=== PATIENT | male | born 1970 | race African-American/Black ===

== ENCOUNTER 2017-06-23 16:44 | Emergency (ER) | payer MEDICARE, OTHER ==
[~2017-06-23] VITALS: Ht 188 cm; Wt 83.9 kg
[~2017-06-23 16:44] MED LIST: DEPAKOTE500 MG PO
--- NOTE | 2017-06-23 16:52 | Emergency Room Report ---
History of Present Illness General Chief Complaint: Seizure Source: Patient Present Illness HPI Patient presents with complaints of seizure activity patient was found on the street by bystanders Paramedics summoned Patient was mildly postictal upon arrival Denies any headache denies any chest pain or shortness of breath Last seizure activity was about 6 months ago Does not recall any change in medication recently patient reports taking Dilantin Denies any recent fevers denies any neck pain or photophobia Allergies: Coded Allergies: No Known Allergies (Unverified , 07/28/13) Patient History Past Medical History: see triage record Pertinent Family History: none Reviewed Nursing Documentation: PMH: Agreed; PSxH: Agreed Nursing Documentation-PMH Past Medical History: No History, Except For Hx Seizures: Yes Review of Systems All Other Systems: negative except mentioned in HPI Physical Exam Vital Signs Date Time Temp Pulse Resp B/P (MAP) Pulse Ox O2 Delivery O2 Flow Rate FiO2 06/23/17 16:46 18 Sp02 EP Interpretation: reviewed, normal General Appearance: well appearing, no apparent distress Head: normocephalic, atraumatic Eyes: bilateral eye PERRL, bilateral eye EOMI ENT: hearing grossly normal, normal pharynx, TMs + canals normal, uvula midline Neck: full range of motion, supple, no meningismus, no bony tend Respiratory: lungs clear, normal breath sounds, no rhonchi, no respiratory distress, no retraction, no accessory muscle use Cardiovascular #1: normal peripheral pulses, regular rate, rhythm, no edema, no gallop, no JVD, no murmur Gastrointestinal: normal bowel sounds, non tender, soft, no mass, no organomegaly, non-distended, no guarding, no hernia, no pulsatile mass, no rebound Genitourinary: no CVA tenderness Musculoskeletal: normal inspection Neurologic: oriented x3, responsive, account auditor III-XII nml as tested, motor strength/ tone normal, sensory intact Psychiatric: mood/affect normal Skin: normal color, no rash, warm/dry, palpation normal Lymphatic: normal inspection, no adenopathy Medical Decision Making Diagnostic Impression: Primary Impression: Seizure disorder Additional Impression: Subtherapeutic phenytoin level ER Course There was a question regarding of the patient takes Dilantin or Depakote He feels a fairly strongly that he takes Dilantin Patient's Dilantin level was undetectable here Was given oral medication Remains seizure-free and requires improved outpatient follow-up and care Labs Test 06/23/17 17:00 White Blood Count 5.9 K/UL (4.8-10.8) Red Blood Count 4.39 M/UL (4.70-6.10) Hemoglobin 13.4 G/DL (14.2-18.0) Hematocrit 41.2 % (42.0-52.0) Mean Corpuscular Volume 94 FL (80-99) Mean Corpuscular Hemoglobin 30.4 PG (27.0-31.0) Mean Corpuscular Hemoglobin Concent 32.4 G/DL (32.0-36.0) Red Cell Distribution Width 13.7 % (11.6-14.8) Platelet Count 200 K/UL (150-450) Mean Platelet Volume 7.5 FL (6.5-10.1) Neutrophils (%) (Auto) 58.3 % (45.0-75.0) Lymphocytes (%) (Auto) 35.6 % (20.0-45.0) Monocytes (%) (Auto) 3.3 % (1.0-10.0) Eosinophils (%) (Auto) 1.2 % (0.0-3.0) Basophils (%) (Auto) 1.5 % (0.0-2.0) Sodium Level 142 MMOL/L (136-145) Potassium Level 3.9 MMOL/L (3.5-5.1) Chloride Level 104 MMOL/L (98-107) Carbon Dioxide Level 26 MMOL/L (21-32) Anion Gap 12 mmol/L (5-15) Blood Urea Nitrogen 5 mg/dL (7-18) Creatinine 0.9 MG/DL (0.55-1.30) Estimat Glomerular Filtration Rate > 60 mL/min (>60) Glucose Level 123 MG/DL (74-106) Calcium Level 9.5 MG/DL (8.5-10.1) Phenytoin (Dilantin) Level < 0.4 ug/mL (10-20) Last Vital Signs Date Time Temp Pulse Resp B/P (MAP) Pulse Ox O2 Delivery O2 Flow Rate FiO2 06/23/17 16:46 18 Status: improved Disposition: HOME, SELF-CARE Condition: Improved Additional Instructions: Patient is provided with the discharge instructions notified to follow up with primary doctor in the next 2-3 days otherwise return to the er with any worsening symptoms.Patient reports that he is taking the bus and he does not drive. He is aware that was seizure activity is not allowed to drive Please note that this report is being documented using [employer] technology. This can lead to erroneous entry secondary to incorrect interpretation by the dictating instrument. Som Ash DO June 23, 2017 16:52
[2017-06-23] MEDS ORDERED: LORazepam 1mg tab ORAL ONE (17:00)
[2017-06-23 17:20] VITALS: BP 118/76
[2017-06-23 17:43] LABS: BASOPHILS % (AUTO) 1.5 % (0.0-2.0); EOSINOPHILS % (AUTO) 1.2 % (0.0-3.0); HEMATOCRIT 41.2 % (42.0-52.0); HEMOGLOBIN 13.4 G/DL (14.2-18.0); LYMPHOCYTES % (AUTO) 35.6 % (20.0-45.0); MEAN CORPUSCULAR VOLUME 94 FL (80-99); MONOCYTES % (AUTO) 3.3 % (1.0-10.0); NEUTROPHILS % (AUTO) 58.3 % (45.0-75.0); PLATELET COUNT 200 K/UL (150-450); RED BLOOD COUNT 4.39 M/UL (4.70-6.10); RED CELL DISTRIBUTION WIDTH 13.7 % (11.6-14.8); WHITE BLOOD COUNT 5.9 K/UL (4.8-10.8)
[2017-06-23 17:56] LABS: ANION GAP 12 mmol/L (5-15); BLOOD UREA NITROGEN 5 mg/dL (7-18); CALCIUM 9.5 MG/DL (8.5-10.1); CARBON DIOXIDE 26 MMOL/L (21-32); CHLORIDE 104 MMOL/L (98-107); CREATININE 0.9 MG/DL (0.55-1.30); POTASSIUM 3.9 MMOL/L (3.5-5.1); SODIUM 142 MMOL/L (136-145)
[2017-06-23 18:00] VITALS: BP 134/87
[2017-06-23] MEDS ORDERED: Phenytoin 100mg cap ORAL ONE (18:15)
== END 2017-06-23 18:00 | disposition home or self-care (01) ==
LOC: EDBD 16:44 → EMR 17:15
DX: G40.909 Epilepsy, unspecified, not intractable, without status epilepticus (principal); Z79.899 Other long term (current) drug therapy
CPT/HCPCS: 36415; 80048; 80185; 85025; 99283

== ENCOUNTER 2017-11-08 17:02 | Emergency (ER) | payer MEDICARE, OTHER ==
[~2017-11-08] VITALS: Ht 188 cm; Wt 86.2 kg
[2017-11-08 17:33] VITALS: BP 132/78
--- NOTE | 2017-11-08 17:56 | Emergency Room Report ---
History of Present Illness General Chief Complaint: General Complaint Present Illness HPI 47-year-old male patient presents ER complaining of "I have hemorrhoids". Reports history of hemorrhoids for over the past 10 years. States that he had surgery to remove a hemorrhoid over 10 years ago, take after the surgery that the "stitches ripped" has had problems since that time. States he has not followed up with his primary care provider since then because "every time he goes to the doctor there is a long line" and he "does not want to wait". Reports intermittent blood in stool with symptoms. Denies diarrhea or constipation. Denies fever, chest pain, shortness of breath, abdominal pain. Allergies: Coded Allergies: No Known Allergies (Unverified , 07/28/13) Patient History Past Medical History: see triage record Reviewed Nursing Documentation: PMH: Agreed; PSxH: Agreed Nursing Documentation-PMH Hx Seizures: Yes - epilepsy Review of Systems All Other Systems: negative except mentioned in HPI Physical Exam Vital Signs Date Time Temp Pulse Resp B/P (MAP) Pulse Ox O2 Delivery O2 Flow Rate FiO2 11/08/17 17:17 98.3 89 18 97 Room Air 98.2 11/08/17 17:33 132/78 Sp02 EP Interpretation: reviewed, normal General Appearance: well appearing, no apparent distress, alert, GCS 15, non- toxic Head: normocephalic, atraumatic Eyes: bilateral eye normal inspection, bilateral eye PERRL ENT: hearing grossly normal, normal pharynx, no angioedema, normal voice, uvula midline, moist mucus membranes Neck: full range of motion Respiratory: lungs clear, normal breath sounds, no rhonchi, no respiratory distress, no accessory muscle use, no wheezing, speaking full sentences Cardiovascular #1: regular rate, rhythm, no edema Gastrointestinal: non tender, soft, no mass, non-distended, no guarding, no rebound Rectal: normal rectal tone, hemorrhoids - mild TTP, no bleeding, other - pink palpable fleshy and mucous-like structure, no concentric rings, no anal fissure , no skin tag Genitourinary: no CVA tenderness Musculoskeletal: back normal, digits/nails normal, gait/station normal, normal range of motion, non-tender Neurologic: alert, oriented x3, responsive, motor strength/tone normal, sensory intact Psychiatric: mood/affect normal Skin: no rash Lymphatic: no adenopathy Medical Decision Making PA Attestation Dr. Moore is my supervising Physician whom patient management has been discussed with. Diagnostic Impression: Primary Impression: Hemorrhoid ER Course Pt. presents to the ED c/o "I have hemorrhoids". Ddx considered but are not limited to constipation, anal tag, anal fissure, hemorrhoids, rectal prolapse. Vital signs: are WNL, pt. is afebrile No orders required at this time. No signs of anemia, no pallor, patient reports no light headedness. ER COURSE: on physical exam, possible chronically exposed vs ruptured hemorrhoid vs rectum exposure, no reducible prolapse, normal rectal tone. discuss patient with possible causes of symptoms including possible malignancy, advised patient to follow-up for outpatient for outpatient workup. no palpable veins, no anal fissure, no skin tag no abdominal tenderness to palpation, able to pass stool, dose not require labs or imaging at this time. patient and contact information for GI specialist and general surgeon, call to schedule appointment. Will treat for hemorrhoids with topical medication. Provide Colace for constipation. Instructed patient to drink plenty of fluids. Patient seen and evaluated by Dr. Moore, agrees with assessment and treatment plan, OK for outpatient followup and treatment. DISCHARGE: Rx provided for lidocaine hydrocortisone cream, apply to affected area. Rx provided for Colace At this time pt is stable for d/c to home. Patient is resting comfortably, in no acute distress, nontoxic appearing, talking without difficulty. Patient to take medications as instructed Will provide with patient care instructions and any necessary prescriptions. Care plan and follow-up instructions provided. Patient instructed to follow-up with primary care provider in 3 - 5 days. Patient questions asked and answered. Patient reports understanding and agreement to treatment plan. ER precautions given. Patient instructed to return to ER immediately for any new or worsening of symptoms including but not limited to increasing SOB, persistent fever. - Please note that this Emergency Department Report was dictated using [employer]ann[employer]attendant campground technology software, occasionally this can lead to erroneous entry secondary to interpretation by the dictation equipment. Last Vital Signs Date Time Temp Pulse Resp B/P (MAP) Pulse Ox O2 Delivery O2 Flow Rate FiO2 11/08/17 17:33 98.2 72 18 132/78 97 Room Air 98.2 Disposition: HOME, SELF-CARE Condition: Stable Scripts Docusate Sodium* (COLACE*) 100 Mg Capsule 100 MG ORAL THREE TIMES A DAY, #21 CAP Prov: José Luis Ordaz 11/08/17 Hydrocortisone Ac/Lidocaine (LIDOCAINE-HC 3-0.5% CREAM) 28.35 Gm Cream..g. 28.35 GM TP BID, #28 GM Prov: José uLis Ordaz 11/08/17 Referrals: NOT CHOSEN IPA/MD,REFERRING (PCP) Patient Instructions: Hemorrhoids, [id number] Additional Instructions: Followup with primary care provider in 2-3 days. Followup with GI specialist and surgeon to discuss further imaging and workup at that time to rule out underlying etiology. Take medications as directed. Patient questions asked and answered. ER precautions given, patient instructed to return to ER immediately for any new or worsening of symptoms. José Luis Ordaz Nov 08, 2017 17:56
[2017-11-08] MEDS ORDERED: COLACE100 MG ORAL (18:22)
[2017-11-08] MEDS ORDERED: LIDOCAINE-HC28.35 GM TP (18:22)
[2017-11-08 18:33] VITALS: BP 132/78
== END 2017-11-08 18:33 | disposition home or self-care (01) ==
LOC: EMR 17:41
DX: K64.9 Unspecified hemorrhoids (principal); G40.909 Epilepsy, unspecified, not intractable, without status epilepticus
CPT/HCPCS: 99283

== ENCOUNTER 2017-11-18 16:32 | Emergency (ER) | payer MEDICARE, OTHER ==
[~2017-11-18] VITALS: Ht 188 cm; Wt 86.2 kg
[~2017-11-18 16:32] MED LIST changes: +COLACE100 MG ORAL; +LIDOCAINE-HC28.35 GM TP
[2017-11-18] MEDS ORDERED: Bacitracin Oint UD TOPIC ONE ×2 (17:00→18:29)
[2017-11-18] MEDS ORDERED: Lidocaine 1% MPF 10mg/ml 5ml INJ ONE (17:00)
[2017-11-18 17:02] VITALS: BP 112/79
--- NOTE | 2017-11-18 17:19 | Emergency Room Report ---
History of Present Illness General Chief Complaint: Laceration Source: Patient Present Illness HPI 47-year-old male patient presents ER complaining of laceration on the bottom of his chin. States that he woke up this morning with a laceration. Denies injury or trauma that he is aware of. States that he went to sleep without any laceration. Reports history of seizures, states that he is taking Dilantin. Reports has been taking his medication as instructed, states that he takes 2000 mg daily. Denies fever, chest pain or shortness of breath. reports smoking marijuana prior to falling asleep. Allergies: Coded Allergies: No Known Allergies (Unverified , 07/28/13) Patient History Past Medical History: see triage record Reviewed Nursing Documentation: PMH: Agreed; PSxH: Agreed Nursing Documentation-PMH Past Medical History: No History, Except For Hx Seizures: Yes - epilepsy Review of Systems All Other Systems: negative except mentioned in HPI Physical Exam Vital Signs Date Time Temp Pulse Resp B/P (MAP) Pulse Ox O2 Delivery O2 Flow Rate FiO2 11/18/17 16:36 98.2 105 18 112/79 95 Room Air 98.2 Sp02 EP Interpretation: reviewed, normal General Appearance: well appearing, no apparent distress, alert, GCS 15, non- toxic Head: normocephalic, atraumatic Eyes: bilateral eye normal inspection, bilateral eye PERRL ENT: hearing grossly normal, normal pharynx, no angioedema, normal voice, uvula midline, moist mucus membranes, other - no jaw clicking Neck: full range of motion Respiratory: lungs clear, normal breath sounds, no rhonchi, no respiratory distress, no accessory muscle use, no wheezing, speaking full sentences Cardiovascular #1: regular rate, rhythm, no edema Musculoskeletal: back normal, digits/nails normal, gait/station normal, normal range of motion, non-tender Neurologic: alert, oriented x3, responsive, soil conservation aide III-XII nml as tested, motor strength/tone normal, sensory intact Psychiatric: mood/affect normal Skin: laceration - deep 3-4 cm linear laceration on chin, surrounding erythema or edema, no active bleeding or drainage Medical Decision Making PA Attestation Dr. Winslow is my supervising Physician whom patient management has been discussed with. Diagnostic Impression: Primary Impression: Laceration Additional Impression: Subtherapeutic phenytoin level ER Course Pt presents to ED c/o laceration on chin. DDX considered but are not limited to laceration, abrasion, contusion, cellulitis. VITAL SIGNS are WNL, patient is afebrile ED INTERVENTIONS: Cranial nerves intact as tested, no focal neuro deficits, hx of seizure disorder , patient ambulatory, does not require labs or imaging at this time. Wound was cleaned and irrigated using normal saline. Local block using Lidocaine 1%. Consult with DR. Prasad, will repair laceration. Provided with contact information for Dr. Prasad, call to schedule appointment , wound check and suture removal in 5-7 days. Wound cleaned and covered using sterile dressing and Bacitracin. Patient reports understanding and agreement to treatment plan. Keep wound clean and dry. ER precautions given. Labs show decreased levels of phenytoin, discuss results with patient. on repeat exam, patient reports that he missed a dose of his medication yesterday. patient likely had seizure causing trauma to his chin. Instructed patient to take medication as directed, follow-up with his PCP to discuss labs and medication use. Patient resting comfortably in no acute distress, nontoxic appearing, okay for discharge home. DISCHARGE: Rx provided for Keflex Rx provided for Bacitracin Rx provided for Tylenol At this time pt is stable for d/c to home. Patient resting comfortably, in no acute distress, nontoxic appearing, talking without difficulty. Will provide with patient care instructions and any necessary prescriptions. Patient to take medication as instructed. Care plan and follow-up instructions provided. Work note provided to patient. Patient questions asked and answered. Patient instructed to follow-up with 5-7 days for removal of sutures with Dr. Prasad. ER precautions given. Patient instructed to return to ER immediately for any new or worsening of symptoms.. - Please note that this Emergency Department Report was dictated using R[employer] Informatiquethermostat mechanic technology software, occasionally this can lead to erroneous entry secondary to interpretation by the dictation equipment. Labs Test 11/18/17 18:00 Phenytoin (Dilantin) Level 0.5 ug/mL (10-20) Last Vital Signs Date Time Temp Pulse Resp B/P (MAP) Pulse Ox O2 Delivery O2 Flow Rate FiO2 11/18/17 17:02 98.2 100 18 112/79 95 Room Air 98.2 Disposition: HOME, SELF-CARE Condition: Stable Scripts Acetaminophen* (TYLENOL EXTRA STRENGTH*) 500 Mg Tablet 500 MG ORAL Q8H PRN for Prn Headache/Temp > 101, #30 TAB 0 Refills Prov: José Luis Ordaz 11/18/17 Cephalexin* (KEFLEX*) 500 Mg Capsule 500 MG ORAL EVERY 12 HOURS, #14 CAP 0 Refills Prov: José Luis Ordaz 11/18/17 Bacitracin/Polymyxin B Sulfate (BACITRACIN-POLYMYXIN OINTMENT) 28.35 Gm Oint...g. 1 APPLIC TP BID, #28 GM Prov: José Luis Ordaz 11/18/17 Referrals: NOT CHOSEN IPA/,REFERRING (PCP) Patient Instructions: Laceration Care, Adult, Seizure, Adult, [id number] Additional Instructions: Patient instructed to follow-up with Dr. Prasad in 5-7 days for wound check and removal of sutures. Call to schedule appointment. Take medications as directed. Keep wound clean and dry. Patient questions asked and answered. ER precautions given, patient instructed to return to ER immediately for any new or worsening of symptoms. José Luis Ordaz Nov 18, 2017 17:19
--- NOTE | 2017-11-18 18:01 | Pre-Procedure Note/Attestation ---
Pre-Procedure Note/Attestation Complete Prior to Procedure Planned Procedure: bilateral Procedure Narrative: chin laceration down to mandible no fracture palpable Indications for Procedure Pre-Operative Diagnosis: two inch deep laceration of just under chin Attestation I attest that I discussed the nature of the procedure; its benefits; risks and complications; and alternatives (and the risks and benefits of such alternatives ), prior to the procedure, with the patient (or the patient's legal hardware supplies sales representative). I attest that, if there was a reasonable possibility of needing a blood transfusion, the patient (or the patient's legal hardware supplies sales representative) was given the [facility] standardized written summary, pursuant to the Mark Evaristo Blood Safety Act ([place] Health and Safety Code # 1645, as amended). I attest that I re-evaluated the patient just prior to the surgery and that there has been no change in the patient's H&P, except as documented below: Tony Schilling MD Nov 18, 2017 18:01
[2017-11-18] MEDS ORDERED: BACITRACIN-P28.35 GM TP (18:07)
[2017-11-18] MEDS ORDERED: TYLENOL EXTRA500 MG ORAL (18:07)
[2017-11-18] MEDS ORDERED: CEPHALEXIN500 MG ORAL (18:07)
[2017-11-18 18:49] VITALS: BP 112/79
--- NOTE | 2017-11-19 18:45 | Operative Note - Dictated ---
DATE OF OPERATION: 11/18/2017 PROCEDURE: The patient entered through the emergency room with a 2 to 2.5 inch laceration under the chin of undetermined origin, does not remember what happened. The laceration is deep down to the mandible. The patient desired to have the wound sutured up, understood the risks, complications, and alternative methods of treatment. He was prepped with Betadine and then irrigated with multiple mL of saline under high pulsatile irrigation, very minimal debridement was done as this is very important tissue. The deep suture is placed were 4-0 Vicryl interrupted in the subcutaneous tissue and dermis and then a continuous running 4-0 blue Prolene numerous continuous running stitches from [id number]. The patient tolerated the procedure well, less than 3 mL of blood noted. The patient was able to look in the mirror and able to go back to work. Tony Schilling M.D. DR: Manuel JOB#: [id number] CC:
== END 2017-11-18 18:50 | disposition home or self-care (01) ==
LOC: EMR 17:05
DX: S01.81XA Laceration without foreign body of other part of head, initial encounter (principal); X58.XXXA Exposure to other specified factors, initial encounter; Y92.9 Unspecified place or not applicable; G40.909 Epilepsy, unspecified, not intractable, without status epilepticus; Z79.899 Other long term (current) drug therapy
CPT/HCPCS: 36415; 80185; 99283

== ENCOUNTER 2017-11-25 18:23 | Emergency (ER) | payer MEDICARE, OTHER ==
[~2017-11-25] VITALS: Ht 188 cm; Wt 86.2 kg
[~2017-11-25 18:23] MED LIST changes: +BACITRACIN-P28.35 GM TP; +CEPHALEXIN500 MG ORAL; +TYLENOL EXTRA500 MG ORAL
[2017-11-25 18:27] VITALS: BP 109/73
[2017-11-25 19:01] VITALS: BP 109/73
--- NOTE | 2017-11-25 19:09 | Emergency Room Report ---
History of Present Illness General Chief Complaint: Wound Recheck/Suture Removal Source: Patient Present Illness [facility] The patient is a 47-year-old male presenting for suture removal and wound check. The patient had sutures placed in this emergency department approximately one week prior. The original injury was that the patient had a seizure and fell and struck his chin. He denies any complications. He denies any pain at this time. He denies any bleeding or discharge, fever, chills, or any other symptoms Allergies: Coded Allergies: No Known Allergies (Unverified , 07/28/13) Patient History Past Medical History: see triage record Pertinent Family History: none Reviewed Nursing Documentation: PMH: Agreed; PSxH: Agreed Nursing Documentation-PMH Past Medical History: No History, Except For Hx Seizures: Yes - epilepsy Review of Systems All Other Systems: negative except mentioned in HPI Physical Exam Vital Signs Date Time Temp Pulse Resp B/P (MAP) Pulse Ox O2 Delivery O2 Flow Rate FiO2 11/25/17 18:27 16 109/73 95 Room Air 11/25/17 18:27 98.6 93 98.6 Sp02 EP Interpretation: reviewed, normal General Appearance: no apparent distress, alert, GCS 15, non-toxic Head: normocephalic, atraumatic Eyes: bilateral eye normal inspection, bilateral eye PERRL ENT: hearing grossly normal, normal pharynx, no angioedema, normal voice Musculoskeletal: back normal, gait/station normal, normal range of motion, non- tender Neurologic: alert, oriented x3, responsive, motor strength/tone normal, sensory intact, speech normal Skin: other - Linear laceration to the chin is well approximated. Sutures are in place Medical Decision Making PA Attestation Dr. Winslow is my supervising physician. Patient management was discussed with my supervising physician Diagnostic Impression: Primary Impression: Visit for suture removal Additional Impression: Suture check ER Course The patient is a 47-year-old male presenting for suture removal from his chin Differential diagnosis considered: Wound infection, nonhealing wound, cellulitis , abscess, dehiscence PE: afebrile. NAD Skin: Linear laceration to chin is well approximated with sutures in place. Well healing. No surrounding erythema. No discharge Suture removal: All sutures were removed without complication. No bleeding or discharge. Wound is well approximated. The patient is discharged home and advised to continue to keep the wound clean and dry. Follow-up with primary doctor Last Vital Signs Date Time Temp Pulse Resp B/P (MAP) Pulse Ox O2 Delivery O2 Flow Rate FiO2 11/25/17 19:01 98.6 16 109/73 95 Room Air 98.6 11/25/17 18:27 93 Status: improved Disposition: HOME, SELF-CARE Condition: Improved Patient Instructions: Suture Removal, Care After Additional Instructions: I discussed my findings with the patient. All questions and concerns have been answered. Treatment and medication compliance have been addressed. I advised the patient that they need to follow up with PMD in 3-5 days. Return to ED if symptoms worsen, new symptoms arise, or if needed for any reason. Patient verbalized understanding of discharge instructions. SRIKANTH SPENCE Nov 25, 2017 19:09
== END 2017-11-25 19:01 | disposition home or self-care (01) ==
LOC: EMR 18:44
DX: Z48.02 Encounter for removal of sutures (principal); Z48.817 Encounter for surgical aftercare following surgery on the skin and subcutaneous tissue
CPT/HCPCS: 99282

== ENCOUNTER → 2017-11-28 | Emergency (ER) | payer MEDICARE, OTHER ==
[~2017-11-28] VITALS: Ht 188 cm; Wt 86.2 kg
[~2017-11-28] MED LIST changes: +DILANTIN100 MG ORAL
[2017-11-28 15:35] VITALS: BP 105/72
--- NOTE | 2017-11-28 18:45 | Emergency Room Report ---
History of Present Illness General Chief Complaint: Wound Recheck/Suture Removal Source: Patient Present Illness HPI 47-year-old male patient presents to ER for suture removal. patient interrupts me during interviewing another patient. Patient was seen in the ER over a week ago for laceration repair on his chin. Patient was seen 3 days ago for suture removal. denies worsening of symptoms. Denies bleeding or drainage. Reports lost his phone was unable to follow-up with plastic surgeon as an outpatient. patient states that he has work and does not want ambulate. Allergies: Coded Allergies: No Known Allergies (Unverified , 07/28/13) Patient History Past Medical History: see triage record Reviewed Nursing Documentation: PMH: Agreed; PSxH: Agreed Nursing Documentation-PMH Past Medical History: No History, Except For Hx Seizures: Yes - epilepsy Review of Systems All Other Systems: negative except mentioned in HPI Physical Exam Vital Signs Date Time Temp Pulse Resp B/P (MAP) Pulse Ox O2 Delivery O2 Flow Rate FiO2 11/28/17 15:35 99.0 92 18 105/72 97 Room Air 99.0 Medical Decision Making PA Attestation Dr. Strong is my supervising Physician whom patient management has been discussed with. Diagnostic Impression: Primary Impression: Encounter for wound re-check ER Course Pt. presents to the ED requesting wound check of chin laceration and suture removal. Ddx considered but are not limited to cellulitis, abscess, wound check, folliculitis. Vital signs: are WNL, pt. is afebrile ER COURSE: Patient came and spoke to me while in another patient interview stating that he needs to be seen immediately or he is going to be late to work. Informed patient that he would be seen shortly. Patient states he needs suture removal from his chin. Informed patient would be with him shortly, reviewed patient charts, patient seen 3 days ago for suture removal. I went to go and speak with the patient but he could not be found, he had eloped. DISCHARGE: At this time pt. is stable for d/c to home. Patient resting comfortably, in no acute distress, nontoxic appearing. Will provide printed patient care instructions and any necessary prescriptions. Care plan and follow up instructions have been discussed with the patient prior to discharge. Patient instructed to follow-up with primary care provider for further treatment and referral. Patient questions asked and answered. ER precautions given. Patient instructed to return to ER immediately for any new or worsening of symptoms including but not limited to fever, worsening of pain symptoms. - Please note that this Emergency Department Report was dictated using SantoSolvepallet stone inserter technology software, occasionally this can lead to erroneous entry secondary to interpretation by the dictation equipment. Last Vital Signs Date Time Temp Pulse Resp B/P (MAP) Pulse Ox O2 Delivery O2 Flow Rate FiO2 11/28/17 15:35 99.0 92 18 105/72 97 Room Air 99.0 Disposition: ELOPED Condition: Stable Referrals: NOT CHOSEN IPA/,REFERRING (PCP) Patient Instructions: Wound Check José Luis Ordaz Nov 28, 2017 18:45
== END | disposition home or self-care (01) ==
LOC: EMR 15:48
DX: Z48.00 Encounter for change or removal of nonsurgical wound dressing (principal)
CPT/HCPCS: 99281

== ENCOUNTER 2017-11-29 20:27 | Emergency (ER) | payer MEDICARE, OTHER ==
[~2017-11-29] VITALS: Ht 188 cm; Wt 86.2 kg
[~2017-11-29 20:27] MED LIST changes: -DILANTIN100 MG ORAL
[2017-11-29] MEDS ORDERED: DILANTIN100 MG ORAL (20:33)
[2017-11-29 20:35] VITALS: BP 124/81
[2017-11-29 22:15] VITALS: BP 125/83
[2017-11-29 22:36] LABS: BASOPHILS % (AUTO) 1.6 % (0.0-2.0); EOSINOPHILS % (AUTO) 0.8 % (0.0-3.0); HEMOGLOBIN 14.1 G/DL (14.2-18.0); MEAN CORPUSCULAR VOLUME 95 FL (80-99); MONOCYTES % (AUTO) 7.1 % (1.0-10.0); NEUTROPHILS % (AUTO) 60.4 % (45.0-75.0); PLATELET COUNT 213 K/UL (150-450); RED BLOOD COUNT 4.42 M/UL (4.70-6.10); RED CELL DISTRIBUTION WIDTH 13.8 % (11.6-14.8); WHITE BLOOD COUNT 5.4 K/UL (4.8-10.8)
[2017-11-29 22:46] LABS: ANION GAP 8 mmol/L (5-15); BLOOD UREA NITROGEN 7 mg/dL (7-18); CALCIUM 9.2 MG/DL (8.5-10.1); CARBON DIOXIDE 28 MMOL/L (21-32); CHLORIDE 104 MMOL/L (98-107); CREATININE 0.9 MG/DL (0.55-1.30); POTASSIUM 4.1 MMOL/L (3.5-5.1); SODIUM 140 MMOL/L (136-145)
[2017-11-29 22:51] LABS: ALANINE AMINOTRANSFERASE 28 U/L (12-78); ALBUMIN 3.7 G/DL (3.4-5.0); ALKALINE PHOSPHATASE 55 U/L (46-116); ASPARTATE AMINO TRANSFERASE 27 U/L (15-37); BILIRUBIN,TOTAL 0.2 MG/DL (0.2-1.0)
--- NOTE | 2017-11-29 23:18 | Emergency Room Report ---
History of Present Illness General Chief Complaint: Altered Level of Consciousness Source: Patient Present Illness HPI The patient 47-year-old male who presented after reported seizure. Patient prior history of seizure disorder. He had reportedly been taking Dilantin. The patient had the been noted to be incontinent of urine. He was initially noted to be somewhat postictal. Seizure was unwitnessed. The patient had previously been taking Depakote and is unsure of what his medications are. Patient states he takes medication regularly. Allergies: Coded Allergies: No Known Allergies (Unverified , 07/28/13) Patient History Past Medical History: see triage record, seizures Reviewed Nursing Documentation: PMH: Agreed; PSxH: Agreed Nursing Documentation-PMH Past Medical History: No History, Except For Hx Seizures: Yes - epilepsy Review of Systems All Other Systems: negative except mentioned in HPI Physical Exam Vital Signs Date Time Temp Pulse Resp B/P (MAP) Pulse Ox O2 Delivery O2 Flow Rate FiO2 11/29/17 20:29 97.4 90 20 140/92 98 Room Air 97.3 Sp02 EP Interpretation: reviewed, normal General Appearance: normal inspection, well appearing, no apparent distress, alert, GCS 15 Head: atraumatic ENT: normal ENT inspection, hearing grossly normal, normal voice Neck: normal inspection, full range of motion, supple, no bony tend Respiratory: normal inspection, lungs clear, normal breath sounds, no respiratory distress, no retraction, no wheezing Cardiovascular #1: regular rate, rhythm, no edema Gastrointestinal: normal inspection, normal bowel sounds, non tender, soft, no guarding, no hernia Genitourinary: no CVA tenderness Musculoskeletal: normal inspection, back normal, normal range of motion Neurologic: normal inspection, alert, oriented x3, responsive, insurance verification rep III-XII nml as tested, speech normal Psychiatric: normal inspection, judgement/insight normal, mood/affect normal Skin: normal inspection, normal color, no rash Medical Decision Making Diagnostic Impression: Primary Impression: Seizure disorder ER Course patient presented for possible seizure. Differential diagnosis included medication noncompliance,cysticercosis, electrolyte abnormality, mass lesion, or cranial hemorrhage.Because of complexity of patient's case laboratory testing and imaging studies were ordered.Laboratory studies were drawn. The patient stated that he had no wanted to remain in the hospital. The patient was advised risk benefits alternatives of leaving AGAINST MEDICAL ADVICE and he indicated understanding and all questions are answered patient still continued want to leave and signed AGAINST MEDICAL ADVICE. Despite risks including but not limited to disability and worsening of current lifestyle. Labs Test 11/29/17 22:00 White Blood Count 5.4 K/UL (4.8-10.8) Red Blood Count 4.42 M/UL (4.70-6.10) Hemoglobin 14.1 G/DL (14.2-18.0) Hematocrit 42.0 % (42.0-52.0) Mean Corpuscular Volume 95 FL (80-99) Mean Corpuscular Hemoglobin 32.0 PG (27.0-31.0) Mean Corpuscular Hemoglobin Concent 33.6 G/DL (32.0-36.0) Red Cell Distribution Width 13.8 % (11.6-14.8) Platelet Count 213 K/UL (150-450) Mean Platelet Volume 7.4 FL (6.5-10.1) Neutrophils (%) (Auto) 60.4 % (45.0-75.0) Lymphocytes (%) (Auto) 30.0 % (20.0-45.0) Monocytes (%) (Auto) 7.1 % (1.0-10.0) Eosinophils (%) (Auto) 0.8 % (0.0-3.0) Basophils (%) (Auto) 1.6 % (0.0-2.0) Sodium Level 140 MMOL/L (136-145) Potassium Level 4.1 MMOL/L (3.5-5.1) Chloride Level 104 MMOL/L (98-107) Carbon Dioxide Level 28 MMOL/L (21-32) Anion Gap 8 mmol/L (5-15) Blood Urea Nitrogen 7 mg/dL (7-18) Creatinine 0.9 MG/DL (0.55-1.30) Estimat Glomerular Filtration Rate > 60 mL/min (>60) Glucose Level 100 MG/DL (74-106) Calcium Level 9.2 MG/DL (8.5-10.1) Total Bilirubin 0.2 MG/DL (0.2-1.0) Aspartate Amino Transf (AST/SGOT) 27 U/L (15-37) Alanine Aminotransferase (ALT/SGPT) 28 U/L (12-78) Alkaline Phosphatase 55 U/L (46-116) Total Protein 7.5 G/DL (6.4-8.2) Albumin 3.7 G/DL (3.4-5.0) Globulin 3.8 g/dL Albumin/Globulin Ratio 1.0 (1.0-2.7) Phenytoin (Dilantin) Level 0.5 ug/mL (10-20) Valproic Acid (Depakene) Level 110 MCG/ML (50-100) Serum Alcohol < 3 mg/dL Last Vital Signs Date Time Temp Pulse Resp B/P (MAP) Pulse Ox O2 Delivery O2 Flow Rate FiO2 11/29/17 20:29 97.4 90 20 140/92 98 Room Air 97.3 Status: improved Disposition: AGAINST MEDICAL ADVICE Condition: Stable Referrals: NOT CHOSEN IPA/,REFERRING (PCP) Bradley Mercado MD Nov 29, 2017 23:18
--- NOTE | 2017-12-03 12:17 | Cardiology Report ---
APPROVED REPORT EKG Measurement Heart [id number] Normal sinus rhythm Normal ECG
== END 2017-11-29 22:16 | disposition left against medical advice (07) ==
LOC: EDBD 20:27 → EMR 20:53
DX: G40.909 Epilepsy, unspecified, not intractable, without status epilepticus (principal)
CPT/HCPCS: 36415; 80053; 80164; 80185; 85025; 93005; 99283; G0480; 80329

== ENCOUNTER 2017-11-30 06:03 | Emergency (ER) | payer MEDICARE, OTHER ==
[~2017-11-30] VITALS: Ht 188 cm; Wt 86.2 kg
[~2017-11-30 06:03] MED LIST changes: +DILANTIN100 MG ORAL
[2017-11-30 06:20] VITALS: BP 106/75
--- NOTE | 2017-11-30 06:25 | Emergency Room Report ---
History of Present Illness General Chief Complaint: Wound Recheck/Suture Removal Source: Patient Present Illness HPI Is a 47-year-old male with a history of seizure. He is here for chief complaint of suture removal. He has suture place and it was removed already. Now he noticed a piece of flesh versus status is still there. He was concerned as when he came in. No fever chills but no nausea no vomiting. He noticed after shaving his cervantes. No other complaint. Is here last night for seizure. Allergies: Coded Allergies: No Known Allergies (Unverified , 07/28/13) Patient History Past Medical History: see triage record, old chart reviewed Past Surgical History: other Pertinent Family History: none Social History: Denies: smoking Immunizations: other Reviewed Nursing Documentation: PMH: Agreed; PSxH: Agreed Nursing Documentation-PM Past Medical History: No History, Except For Hx Seizures: Yes - epilepsy Review of Systems Eye: Denies: eye pain, blurred vision ENT: Denies: ear pain, nose congestion, throat swelling Respiratory: Denies: cough, shortness of breath Cardiovascular: Denies: chest pain, palpitations Gastrointestinal: Denies: abdominal pain, diarrhea, nausea, vomiting Musculoskeletal: Denies: back pain, joint pain Skin: Denies: rash Neurological: Denies: headache, numbness Endocrine: Denies: increased thirst, increased urine Hematologic/Lymphatic: Denies: easy bruising All Other Systems: negative except mentioned in HPI Physical Exam Vital Signs Date Time Temp Pulse Resp B/P (MAP) Pulse Ox O2 Delivery O2 Flow Rate FiO2 11/30/17 06:10 97.8 85 16 106/75 96 Room Air 97.9 vitals normal Sp02 EP Interpretation: reviewed, normal General Appearance: well appearing, no apparent distress, alert Head: normocephalic, atraumatic, other - He had a well healed laceration to his chin. In one area there is a small not from the Vicryl suture. No drainage. No redness. Eyes: bilateral eye PERRL, bilateral eye EOMI ENT: hearing grossly normal, normal pharynx Neck: full range of motion, supple, no meningismus Respiratory: chest non-tender, lungs clear, normal breath sounds Cardiovascular #1: regular rate, rhythm, no murmur Gastrointestinal: normal bowel sounds, non tender, no mass, no organomegaly, no bruit, non-distended Musculoskeletal: back normal, gait/station normal, normal range of motion Psychiatric: mood/affect normal Skin: warm/dry Medical Decision Making Diagnostic Impression: Primary Impression: Visit for suture removal ER Course Patient for suture removal. I used a scissor to remove the Vicryl suture. Patient tolerated procedure without a problem. Last Vital Signs Date Time Temp Pulse Resp B/P (MAP) Pulse Ox O2 Delivery O2 Flow Rate FiO2 11/30/17 06:20 97.9 85 16 106/75 96 Room Air 97.9 Status: improved Disposition: HOME, SELF-CARE Condition: Stable Additional Instructions: Follow-up with your doctor as needed. Take your seizure medication. Return if worse. Gordon Brewer MD Nov 30, 2017 06:25
[2017-11-30 06:28] VITALS: BP 106/75
== END 2017-11-30 06:31 | disposition home or self-care (01) ==
LOC: EMR 06:17
DX: S01.81XD Laceration without foreign body of other part of head, subsequent encounter (principal); X58.XXXD Exposure to other specified factors, subsequent encounter; Z48.02 Encounter for removal of sutures
CPT/HCPCS: 99282

== ENCOUNTER 2017-12-08 00:12 | Emergency (ER) | payer MEDICARE, OTHER ==
[~2017-12-08] VITALS: Ht 188 cm; Wt 81.6 kg
[2017-12-08 00:25] VITALS: BP 110/68
--- NOTE | 2017-12-08 00:35 | Emergency Room Report ---
History of Present Illness General Chief Complaint: Wound Recheck/Suture Removal Source: Patient Present Illness HPI Is a 47-year-old male here for suture removal. He had a laceration done to his chin. He had the sutures removed already. He was here last week when one of the very suture came out and I removed that. Now it is another one. No infection. No other complaint. No pain. Allergies: Coded Allergies: No Known Allergies (Unverified , 07/28/13) Patient History Past Medical History: see triage record, old chart reviewed Past Surgical History: none Pertinent Family History: none Social History: Denies: smoking Immunizations: other Reviewed Nursing Documentation: PMH: Agreed; PSxH: Agreed Nursing Documentation-PMH Hx Seizures: Yes - epilepsy Review of Systems Eye: Denies: eye pain, blurred vision ENT: Denies: ear pain, nose congestion, throat swelling Respiratory: Denies: cough, shortness of breath Cardiovascular: Denies: chest pain, palpitations Gastrointestinal: Denies: abdominal pain, diarrhea, nausea, vomiting Musculoskeletal: Denies: back pain, joint pain Skin: Denies: rash Neurological: Denies: headache, numbness Endocrine: Denies: increased thirst, increased urine Hematologic/Lymphatic: Denies: easy bruising All Other Systems: negative except mentioned in HPI Physical Exam Vital Signs Date Time Temp Pulse Resp B/P (MAP) Pulse Ox O2 Delivery O2 Flow Rate FiO2 12/08/17 00:16 98.3 76 16 107/74 99 Room Air 98.2 vitals normal Sp02 EP Interpretation: reviewed, normal General Appearance: well appearing, no apparent distress, alert Head: normocephalic, atraumatic Eyes: bilateral eye PERRL, bilateral eye EOMI ENT: hearing grossly normal, normal pharynx, other - chin: One small suture extruding from chin. No infection. Neck: full range of motion, supple, no meningismus Respiratory: chest non-tender, lungs clear, normal breath sounds Cardiovascular #1: regular rate, rhythm, no murmur Gastrointestinal: normal bowel sounds, non tender, no mass, no organomegaly, no bruit, non-distended Musculoskeletal: back normal, gait/station normal, normal range of motion Psychiatric: mood/affect normal Skin: warm/dry Procedures Additional Procedure Procedure Narrative procedure: suture removal indication: laceration description: I removed the suture with a small scissor. No competition. Patient tolerated procedure of a problem. Medical Decision Making Diagnostic Impression: Primary Impression: Encounter for removal of sutures ER Course Patient here for suture removal. No infection or complication. Last Vital Signs Date Time Temp Pulse Resp B/P (MAP) Pulse Ox O2 Delivery O2 Flow Rate FiO2 12/08/17 00:16 98.3 76 16 107/74 99 Room Air 98.2 Status: improved Disposition: HOME, SELF-CARE Condition: Stable Referrals: NOT CHOSEN IPA/MD,REFERRING (PCP) Patient Instructions: Wound Check Additional Instructions: Follow-up with your doctor in 7 days. Return if worse. Gordon Brewer MD Dec 08, 2017 00:35
[2017-12-08 00:37] VITALS: BP 110/68
== END 2017-12-08 00:37 | disposition home or self-care (01) ==
LOC: EMR 00:31
DX: Z48.02 Encounter for removal of sutures (principal)
CPT/HCPCS: 99282

== ENCOUNTER 2018-01-05 17:12 | Emergency (ER) | payer MEDICARE, OTHER ==
--- NOTE | 2018-01-05 20:28 | Emergency Room Report ---
History of Present Illness General Chief Complaint: To Be Triaged Present Illness HPI This patient left prior to triage and evaluation by medical provider. Allergies: Coded Allergies: No Known Allergies (Unverified , 07/28/13) Nursing Documentation-H Hx Seizures: Yes - epilepsy Medical Decision Making PA Attestation Dr. Kearns is my supervising Physician whom patient management has been discussed with. ER Course This patient left prior to triage and evaluation by medical provider. Disposition: LEFT W/OUT BEING SEEN Condition: Unknown Referrals: NON PHYSICIAN (PCP) Karuna Zamora Jan 05, 2018 20:28
== END 2018-01-05 17:30 | disposition left against medical advice (07) ==
LOC: EMR 17:25
DX: K64.9 Unspecified hemorrhoids (principal); Z53.21 Procedure and treatment not carried out due to patient leaving prior to being seen by health care provider

== ENCOUNTER 2018-02-07 07:58 | Day surgery (SDC) | payer MEDICARE, OTHER ==
[2018-02-07] VITALS (7 sets, daily range): BP systolic 107–129; BP diastolic 73–92
[~2018-02-07] VITALS: Ht 188 cm; Wt 83.9 kg
[2018-02-07] MEDS ORDERED: marijuana INH (08:33)
--- NOTE | 2018-02-07 10:14 | Pre-Procedure Note/Attestation ---
Pre-Procedure Note/Attestation Complete Prior to Procedure Planned Procedure: not applicable Procedure Narrative: colonoscopy Indications for Procedure Pre-Operative Diagnosis: rectal bleed Attestation I attest that I discussed the nature of the procedure; its benefits; risks and complications; and alternatives (and the risks and benefits of such alternatives ), prior to the procedure, with the patient (or the patient's legal veterans contact representative). I attest that, if there was a reasonable possibility of needing a blood transfusion, the patient (or the patient's legal veterans contact representative) was given the [facility] standardized written summary, pursuant to the Mark Evaristo Blood Safety Act ([place] Health and Safety Code # 1645, as amended). I attest that I re-evaluated the patient just prior to the surgery and that there has been no change in the patient's H&P, except as documented below: James Wild MD Feb 07, 2018 10:14
--- NOTE | 2018-02-07 10:14 | Short Stay Surgery H&P ---
History of Present Illness History of Present Illness Chief Complaint see recent office note HPI Jeremiah Graham is a 47 year old male who was admitted on for Rectal Bleed Patient History Allergies: Coded Allergies: No Known Allergies (Unverified , 07/28/13) Medication History Scheduled Divalproex Sodium (Depakote), 1,000 MG PO BID, (Reported) [marijuana], 1 INH PRN, (Reported) Physical Exam Vital Signs Last Vital Signs Date Time Temp Pulse Resp B/P (MAP) Pulse Ox O2 Delivery O2 Flow Rate FiO2 02/07/18 09:04 97.5 61 18 111/73 100 Room Air Plan Attestation Are the patient's medical conditions optimized for surgery? James Wild MD Feb 07, 2018 10:14
[2018-02-07] MEDS ORDERED: Atropine Inj 1mg/10ml Syr IV PRN (10:30)
[2018-02-07] MEDS ORDERED: Propofol 200mg/20ml IV ONE (10:30)
[2018-02-07] MEDS ORDERED: Midazolam 2mg/2ml Inj IVP PRN (10:30)
[2018-02-07] MEDS ORDERED: fentaNYL 100 mcg/2 mL IV PRN (10:30)
[2018-02-07] MEDS ORDERED: Lidocaine 1% MPF 10mg/ml 5ml ONE (10:30)
[2018-02-07] MEDS ORDERED: DiphenhydrAMINE 50mg/ml Inj IVP PRN (10:30)
[2018-02-07] MEDS ORDERED: Atropine Sulfate 0.4mg/ml inj ONE (10:30)
--- NOTE | 2018-02-07 10:50 | Anethesia Preoperative Eval ---
Anesthesia Pre-op PMH/ROS General Date of Evaluation: Feb 07, 2018 Time of Evaluation: 10:21 Anesthesiologist: keith ASA Score: ASA 2 Mallampati Score Class I : Soft palate, uvula, fauces, pillars visible Class II: Soft palate, uvula, fauces visible Class III: Soft palate, base of uvula visible Class IV: Only hard plate visible Mallampati Classification: Class II Surgeon: collins Diagnosis: rectal bleeding Surgical Procedure: colonoscopy Anesthesia History: none Social History: current smoker - marijuana Family History: no anesthesia problems Allergies: Coded Allergies: No Known Allergies (Unverified , 07/28/13) Medications: see eMAR Patient NPO?: Yes Past Medical History Neurologic/Psychiatric: Reports: depression/anxiety, other - seizure disorder Anesthesia Pre-op Phys. Exam Physician Exam Last Vital Signs Date Time Temp Pulse Resp B/P (MAP) Pulse Ox O2 Delivery O2 Flow Rate FiO2 02/07/18 09:04 97.5 61 18 111/73 100 Room Air Constitutional: NAD Neurologic: CN 2-12 intact Cardiovascular: RRR Respiratory: CTA Gastrointestinal: S/NT/ND Airway Exam Mallampati Score: Class II MO: full Neck: flexible TMD: 2fb ROM: full Anesthesia Pre-op A/P Risk Assessment & Plan Assessment: asa2 Plan: mac Status Change Before Surgery: No Pre-Antibiotics Drug: Tish Aiken MD Feb 07, 2018 10:50
--- NOTE | 2018-02-07 10:56 | Endoscopy Procedure Note ---
Endoscopy Procedure Note General Indication for Procedure: rectal bleed Procedures Performed: colonoscopy Operative Findings/Diagnosis: 4 polyps Specimen: yes Pt Tolerated Procedure Well: Yes Estimated Blood Loss: none Anesthesia Anesthesiologist: yuridia Anesthesia: MAC Inserted Devices Implant(s) used?: No Quality Quality of Bowel Preparation: Good Did scope reach the cecum?: Yes Was there any complications?: No GI Core Measures 50 yrs or older w/o bx or poly: No 10yrs. F/U not recommended: Yes If not recommended, why?: Above average risk 10 yrs. F/U needed: Yes 18 years or older w/prev. colo: No James Wild MD Feb 07, 2018 10:56
--- NOTE | 2018-02-07 11:03 | Endoscopy Procedure Note ---
Endoscopy Procedure Note General Indication for Procedure: rectal bleed Procedures Performed: colonoscopy Operative Findings/Diagnosis: 4 polyps Specimen: yes Pt Tolerated Procedure Well: Yes Estimated Blood Loss: none Anesthesia Anesthesiologist: ashly Anesthesia: MAC Inserted Devices Implant(s) used?: No Quality Quality of Bowel Preparation: Good Did scope reach the cecum?: Yes Was there any complications?: No GI Core Measures 50 yrs or older w/o bx or poly: No 10yrs. F/U not recommended: Yes If not recommended, why?: Above average risk 10 yrs. F/U needed: Yes 18 years or older w/prev. colo: No James Wild MD Feb 07, 2018 11:03
--- NOTE | 2018-02-07 11:31 | Immediate Post-Op Evaluation ---
Immediate Post-Op Evalulation Immediate Post-Op Evalulation Procedure: colonoscopy w/bx Date of Evaluation: Feb 07, 2018 Time of Evaluation: 11:17 IV Fluids: 100ml 0.9ns Blood Products: none Estimated Blood Loss: negligible Blood Pressure Systolic: 117 Blood Pressure Diastolic: 89 Pulse Rate: 58 Respiratory Rate: 18 O2 Sat by Pulse Oximetry: 100 Temperature (Fahrenheit): 97.2 Pain Score (1-10): 0 Nausea: No Vomiting: No Complications none Patient Status: awake, reacts, patent Hydration Status: adequate Drug: Tish Aiken MD Feb 07, 2018 11:31
--- NOTE | 2018-02-07 11:32 | 48 Hour Post Anesthesia Eval ---
Post Anesthesia Evaluation Procedure: colonoscopy w/bx Date of Evaluation: Feb 07, 2018 Time of Evaluation: 11:19 Blood Pressure Systolic: 120 0: 89 Pulse Rate: 58 Respiratory Rate: 18 Temperature (Fahrenheit): 97.2 O2 Sat by Pulse Oximetry: 100 Airway: patent Nausea: No Vomiting: No Pain Intensity: 0 Hydration Status: adequate Cardiopulmonary Status: stable Mental Status/LOC: patient returned to baseline Post-Anesthesia Complications: none Follow-up care needed: N/A Tish Cho MD Feb 07, 2018 11:32
--- NOTE | 2018-02-07 16:15 | Procedure Note ---
DATE OF PROCEDURE: 02/07/2018 SURGEON: James Wild M.D. PROCEDURE: Colonoscopy with biopsy. ANESTHESIA: Per Dr. Vasquez. INSTRUMENT: Olympus adult flexible colonoscope. INDICATION: Rectal bleeding. REASON FOR PROCEDURE: The procedure, risks, benefits, and possible consequences, including hemorrhage, aspiration, perforation and infection, and alternative treatments, were explained to the patient/legal guardian by Dr. James Wild and the patient/legal guardian understood and accepted these risks. PROCEDURE IN DETAIL: After informed consent was obtained and the patient was adequately sedated, a rectal examination was performed, which showed evidence of large external and internal hemorrhoids. Then, the scope was advanced from the rectum into the cecum documented by appendiceal orifice, ileocecal valve, and right upper quadrant palpation. Quality of prep was good. The patient had 4 polyps in the rectosigmoid area. All these polyps were small. All 4 of them were removed with the cold biopsy forceps technique. Most probably hyperplastic polyps. The rest of the examination was grossly within normal limits. Retroflexion of rectum showed evidence of internal hemorrhoids. SUMMARY OF FINDINGS: 1. Four colonic polyps removed, see above for details. 2. Large external and some internal hemorrhoids. RECOMMENDATIONS: 1. Follow up biopsy results. Depending on the pathology, we recommend repeat colonoscopy in 3 to 5 years. 2. The patient needs a referral for surgical team, colorectal surgery for this larger external hemorrhoids. James Wild M.D. DR: RAFAEL JOB#: [id number] CC:
--- NOTE | 2018-02-12 14:22 | Cardiology Report ---
APPROVED REPORT EKG Measurement Heart [id number] Sinus bradycardia Otherwise normal ECG
== END 2018-02-07 12:20 | disposition home or self-care (01) ==
LOC: GAS 07:58
DX: K62.5 Hemorrhage of anus and rectum (principal); K64.4 Residual hemorrhoidal skin tags; K64.8 Other hemorrhoids; K63.5 Polyp of colon; F32.9 Major depressive disorder, single episode, unspecified; F41.9 Anxiety disorder, unspecified; G40.909 Epilepsy, unspecified, not intractable, without status epilepticus
CPT/HCPCS: 93005; 94003; 94150

== ENCOUNTER 2018-02-21 16:57 | Emergency (ER) | payer MEDICARE, OTHER ==
[~2018-02-21] VITALS: Ht 185.4 cm; Wt 83.9 kg
[~2018-02-21 16:57] MED LIST changes: +marijuana INH
--- NOTE | 2018-02-21 17:17 | NUR ---
ED Nurse Note: Pt has a hemorrhoid for years and wants it examined. A + O x4. Ambulatory. Skin warm to touch.
[2018-02-21 18:02] VITALS: BP 120/84
[2018-02-21 18:05] LABS: APPEARANCE,URINE CLEAR; BILIRUBIN, URINE NEGATIVE (NEGATIVE); COLOR,URINE PALE YELLOW; GLUCOSE, URINE (UA) NEGATIVE (NEGATIVE); KETONES,URINE NEGATIVE (NEGATIVE); LEUKOCYTE ESTERASE ,URINE NEGATIVE (NEGATIVE); NITRITE,URINE NEGATIVE (NEGATIVE); PH,URINE 7 (4.5-8.0); PROTEIN,URINE NEGATIVE (NEGATIVE); UROBILINOGEN,URINE NORMAL MG/DL (0.0-1.0)
[2018-02-21 18:24] LABS: BASOPHILS % (AUTO) 2.9 % (0.0-2.0); EOSINOPHILS % (AUTO) 1.3 % (0.0-3.0); HEMATOCRIT 41.2 % (42.0-52.0); HEMOGLOBIN 13.6 G/DL (14.2-18.0); LYMPHOCYTES % (AUTO) 33.4 % (20.0-45.0); MEAN CORPUSCULAR VOLUME 97 FL (80-99); MONOCYTES % (AUTO) 6.1 % (1.0-10.0); NEUTROPHILS % (AUTO) 56.3 % (45.0-75.0); PLATELET COUNT 222 K/UL (150-450); RED BLOOD COUNT 4.25 M/UL (4.70-6.10); RED CELL DISTRIBUTION WIDTH 13.8 % (11.6-14.8); WHITE BLOOD COUNT 7.6 K/UL (4.8-10.8)
--- NOTE | 2018-02-21 18:27 | Emergency Room Report ---
History of Present Illness General Chief Complaint: Skin Rash/Abscess Source: Patient Present Illness HPI Patient was in his doctor's office and had a seizure. There was no incontinence. Patient was postictal after the event. Supposed be taking Dilantin and says that he has been. He doesn't believe he had a seizure because when he does he is incontinent. He does not want to be here and is initially refusing evaluation. History of seizures and he states long time since last seizure. Patient denies headache, change in vision, nausea, vomiting, diarrhea, dysuria, skin rashes, joint pain, neck pain. At triage the patient was complaining about hemorrhoids. According to his doctor surgical treatment is planned. Allergies: Coded Allergies: No Known Allergies (Unverified , 07/28/13) Patient History Past Medical History: see triage record Social History: Reports: smoking Social History Narrative Lives with sister Reviewed Nursing Documentation: PMH: Agreed; PSxH: Agreed Nursing Documentation-PMH Past Medical History: No History, Except For Hx Cardiac Problems: No Hx Cancer: No Hx Gastrointestinal Problems: Yes Hx Neurological Problems: Yes Hx Seizures: Yes - last was July 2017 Review of Systems All Other Systems: negative except mentioned in HPI Physical Exam Vital Signs Date Time Temp Pulse Resp B/P (MAP) Pulse Ox O2 Delivery O2 Flow Rate FiO2 02/21/18 17:12 98.1 79 20 120/84 98 Room Air Sp02 EP Interpretation: reviewed, normal General Appearance: well appearing, no apparent distress, alert, other - GCS of 14 as he does not remember the event and does not believe he had a seizure. Head: normocephalic Eyes: bilateral eye normal inspection, bilateral eye PERRL, bilateral eye EOMI ENT: moist mucus membranes - No lingual macerations Neck: supple, no bony tend Respiratory: lungs clear, normal breath sounds Cardiovascular #1: regular rate, rhythm Cardiovascular #2: 2+ radial (R) Gastrointestinal: normal inspection, normal bowel sounds, non tender, no mass, non-distended, scaphoid Genitourinary: no CVA tenderness Musculoskeletal: back normal, gait/station normal, normal range of motion Neurologic: alert, oriented x3, motor strength/tone normal, DTRs symmetric, sensory intact, cerebellar normal, normal gait Psychiatric: other - Argumentative and denies seizure Skin: normal inspection, warm/dry Medical Decision Making Diagnostic Impression: Primary Impression: Seizure Additional Impressions: Non compliance with medical treatment Subtherapeutic phenytoin level ER Course Patient presents after having a witnessed seizure in his doctor's office. Differential includes breakthrough seizure, noncompliance, electrolyte imbalance amongst others. Based on his neurologic exam CT of the head is not indicated at this time. The patient will be evaluated with labs including Dilantin level. He is reluctant to lay on a gurney. He finally agreed to have labs drawn. He discussed what we told him with his sister. Labs significant for no Dilantin and the patient's blood. CBC and CMP unremarkable. A combination of Dilantin pills and liquid are given and a loading dose to the patient. He is insisting on leaving the emergency department. Discussed the risk of possible seizure if he is noncompliant. The patient understands this. The patient is stable for outpatient observation and treatment. Laboratory Tests Test 02/21/18 17:47 02/21/18 18:15 Urine Color Pale yellow Urine Appearance Clear Urine pH 7 (4.5-8.0) Urine Specific [place] 1.010 (1.005-1.035) Urine Protein Negative (NEGATIVE) Urine Glucose (UA) Negative (NEGATIVE) Urine Ketones Negative (NEGATIVE) Urine Blood Negative (NEGATIVE) Urine Nitrite Negative (NEGATIVE) Urine Bilirubin Negative (NEGATIVE) Urine Urobilinogen Normal MG/DL (0.0-1.0) Urine Leukocyte Esterase Negative (NEGATIVE) White Blood Count 7.6 K/UL (4.8-10.8) Red Blood Count 4.25 M/UL (4.70-6.10) L Hemoglobin 13.6 G/DL (14.2-18.0) L Hematocrit 41.2 % (42.0-52.0) L Mean Corpuscular Volume 97 FL (80-99) Mean Corpuscular Hemoglobin 32.1 PG (27.0-31.0) H Mean Corpuscular Hemoglobin Concent 33.1 G/DL (32.0-36.0) Red Cell Distribution Width 13.8 % (11.6-14.8) Platelet Count 222 K/UL (150-450) Mean Platelet Volume 6.4 FL (6.5-10.1) L Neutrophils (%) (Auto) 56.3 % (45.0-75.0) Lymphocytes (%) (Auto) 33.4 % (20.0-45.0) Monocytes (%) (Auto) 6.1 % (1.0-10.0) Eosinophils (%) (Auto) 1.3 % (0.0-3.0) Basophils (%) (Auto) 2.9 % (0.0-2.0) H Sodium Level 141 MMOL/L (136-145) Potassium Level 4.2 MMOL/L (3.5-5.1) Chloride Level 104 MMOL/L (98-107) Carbon Dioxide Level 29 MMOL/L (21-32) Anion Gap 8 mmol/L (5-15) Blood Urea Nitrogen 3 mg/dL (7-18) L Creatinine 1.0 MG/DL (0.55-1.30) Estimate Glomerular Filtration Rate > 60 mL/min (>60) Glucose Level 102 MG/DL (74-106) Calcium Level 9.3 MG/DL (8.5-10.1) Total Bilirubin 0.2 MG/DL (0.2-1.0) Aspartate Amino Transferase (AST) 14 U/L (15-37) L Alanine Aminotransferase (ALT) 16 U/L (12-78) Alkaline Phosphatase 55 U/L (46-116) Total Creatine Kinase 174 U/L (26-308) Total Protein 7.9 G/DL (6.4-8.2) Albumin 3.9 G/DL (3.4-5.0) Globulin 4.0 g/dL Albumin/Globulin Ratio 1.0 (1.0-2.7) Phenytoin (Dilantin) Level < 0.5 ug/mL (10-20) L Last Vital Signs Date Time Temp Pulse Resp B/P (MAP) Pulse Ox O2 Delivery O2 Flow Rate FiO2 02/21/18 19:22 98.0 78 18 115/75 99 Room Air Status: improved Disposition: HOME, SELF-CARE Condition: Improved Referrals: NON PHYSICIAN (PCP) Alberto Winslow MD Feb 21, 2018 18:27
[2018-02-21 18:37] LABS: ANION GAP 8 mmol/L (5-15); BLOOD UREA NITROGEN 3 mg/dL (7-18); CALCIUM 9.3 MG/DL (8.5-10.1); CARBON DIOXIDE 29 MMOL/L (21-32); CHLORIDE 104 MMOL/L (98-107); POTASSIUM 4.2 MMOL/L (3.5-5.1); SODIUM 141 MMOL/L (136-145)
[2018-02-21 18:41] LABS: ALANINE AMINOTRANSFERASE 16 U/L (12-78); ALBUMIN 3.9 G/DL (3.4-5.0); ALKALINE PHOSPHATASE 55 U/L (46-116); ASPARTATE AMINO TRANSFERASE 14 U/L (15-37); BILIRUBIN,TOTAL 0.2 MG/DL (0.2-1.0); CREATINE KINASE 174 U/L (26-308)
--- NOTE | 2018-02-21 19:11 | NUR ---
ED Nurse Note: REPORT GIVEN TO KARLOS MEEKS.
[2018-02-21] MEDS ORDERED: Phenytoin 100mg cap ORAL ONE (19:15)
[2018-02-21] MEDS ORDERED: Phenytoin Susp 100mg/4ml NG ONE (19:15)
[2018-02-21 19:22] VITALS: BP 115/75
--- NOTE | 2018-02-21 19:22 | NUR ---
ED Nurse Note: ermd with order and was carried out by peyton hawkins, pt was cleared for discharge and prescription together with discharge instruction was explained by peyton hawkins with the pt and opt able to verbalize understanding. id band removed. pt vss. aox4. pt left the ed with all the belongings.
== END 2018-02-21 19:22 | disposition home or self-care (01) ==
LOC: EMR 17:32
DX: G40.909 Epilepsy, unspecified, not intractable, without status epilepticus (principal); Z91.14 Patient's other noncompliance with medication regimen
CPT/HCPCS: 36415; 80053; 80185; 81003; 82550; 85025; 99283

== ENCOUNTER 2018-05-08 23:35 | Emergency (ER) | payer MEDICARE, OTHER ==
[~2018-05-08] VITALS: Ht 188 cm; Wt 86.2 kg
[2018-05-08 23:50] VITALS: BP 107/80
--- NOTE | 2018-05-09 | NUR ---
ED Nurse Note: Pt states he had seizure and then fall hit his face on 13th last week, Pt was in [facility] ER. Now Pt's denist needs Pt to follow up the MD first. pt is alert and oriented times 4. pt pupils are round and reactvie to light and accomodating. pt is able to ambulate with steady gait.
--- NOTE | 2018-05-09 00:47 | Emergency Room Report ---
History of Present Illness General Chief Complaint: General Complaint Present Illness HPI Patient is a 47-year-old male who presented after recent seizure. Patient had prior history of seizure disorder. He had been taking Vimpat as well as Depakote. Patient was noted to have recent diagnosis of cervical spine fracture as well as mandibular fracture. Patient was requesting x-rays however it appears that he has had these x-rays in the past 1 week.Patient stated that he needed some x-rays to be medically cleared for oral surgery. Patient been noted to have some prior history of fracture. He had previously been referred to an oral surgeon Allergies: Coded Allergies: No Known Allergies (Unverified , 07/28/13) Patient History Past Medical History: see triage record Reviewed Nursing Documentation: PMH: Agreed; PSxH: Agreed Nursing Documentation-PMH Hx Cardiac Problems: No Hx Cancer: No Hx Gastrointestinal Problems: Yes Hx Neurological Problems: Yes Hx Seizures: Yes - last was July 2017, May 02 2018 Review of Systems All Other Systems: negative except mentioned in HPI Physical Exam Vital Signs Date Time Temp Pulse Resp B/P (MAP) Pulse Ox O2 Delivery O2 Flow Rate FiO2 05/08/18 23:40 98.2 95 20 107/80 97 Room Air 05/08/18 23:50 98 General Appearance: well appearing, no apparent distress, alert, GCS 15 Head: normocephalic, atraumatic ENT: hearing grossly normal, normal voice Neck: full range of motion, supple Respiratory: chest non-tender, lungs clear, no respiratory distress, speaking full sentences Cardiovascular #1: normal inspection Gastrointestinal: normal inspection Musculoskeletal: no calf tenderness Neurologic: normal inspection, alert, oriented x3, responsive, normal gait Psychiatric: mood/affect normal Skin: no rash Medical Decision Making Diagnostic Impression: Primary Impression: Seizure disorder Additional Impression: Mandibular fracture ER Course Patient presented for x-rays. Patient appears to have had previous imaging of areas which is concerned. Patient was noted to have prior CT imaging of his cervical spine which showed a chronic spinous process fracture to C6. Patient was also noted to have mandibular fracture on prior CT imaging. Patient was advised to contact the oral surgeon who was previously referred to. Patient was advised to return to be any concerns. Last Vital Signs Date Time Temp Pulse Resp B/P (MAP) Pulse Ox O2 Delivery O2 Flow Rate FiO2 05/08/18 23:50 95 20 Room Air 98 05/08/18 23:50 98.2 107/80 97 Status: improved Disposition: HOME, SELF-CARE Condition: Stable Bradley Mercado MD May 09, 2018 00:47
[2018-05-09 01:37] VITALS: BP 129/76
--- NOTE | 2018-05-09 01:38 | NUR ---
ER DISCHARGE NOTE: Patient is cleared to be discharged per ERMD, pt is aox4, on room air, with stable vital signs. pt was given dc and prescription instructions, pt was able to verbalize understanding, pt id band removed without complications. pt is able to ambulate with steady gait. pt took all belongings.
== END 2018-05-09 01:38 | disposition home or self-care (01) ==
LOC: EMR 23:59
DX: G40.909 Epilepsy, unspecified, not intractable, without status epilepticus (principal); S02.400A Malar fracture, unspecified side, initial encounter for closed fracture; X58.XXXA Exposure to other specified factors, initial encounter; Y92.9 Unspecified place or not applicable
CPT/HCPCS: 99282

== ENCOUNTER 2018-07-30 11:50 | Day surgery (SDC) | payer MEDICARE, OTHER ==
[~2018-07-30] VITALS: Ht 188 cm; Wt 86.2 kg
[2018-07-30] VITALS (10 sets, daily range): BP systolic 103–133; BP diastolic 61–83
[2018-07-30] MEDS ORDERED: LR 1000ml 1,000 ML IVLG SCH (13:23)
[2018-07-30] MEDS ORDERED: Hydromorphone 0.5mg/0.5ml inj IVP PRN (13:30)
[2018-07-30] MEDS ORDERED: DiphenhydrAMINE 50mg/ml Inj IVP PRN (13:30)
[2018-07-30] MEDS ORDERED: Acetaminophen (Non formulary) 100 ML IV ONE (13:30)
[2018-07-30] MEDS ORDERED: Labetalol 5mg/ml 20ml vial IV PRN (13:30)
[2018-07-30] MEDS ORDERED: Metoclopramide 10mg/2ml Inj IVP PRN (13:30)
[2018-07-30] MEDS ORDERED: fentaNYL 100 mcg/2 mL IV PRN (13:30)
[2018-07-30] MEDS ORDERED: HYDROcodone/Acetamin 7.5/325 tab ORAL PRN (13:30)
[2018-07-30] MEDS ORDERED: HYDROcodone/Acetamin 5/325 tab ORAL PRN ×2 (13:30→16:00)
[2018-07-30] MEDS ORDERED: Ketorolac 30mg Inj IV PRN ×2 (13:30)
[2018-07-30] MEDS ORDERED: LORazepam Inj 2mg/ml 1ml IV PRN (13:30)
[2018-07-30] MEDS ORDERED: oxyCODONE HCL/Acetaminophen 5/325mg ORAL PRN (13:30)
[2018-07-30] MEDS ORDERED: Midazolam 2mg/2ml Inj IVP PRN (13:30)
[2018-07-30] MEDS ORDERED: Meperidine 50mg/ml Inj(FOR RIGORS ONLY) IVP PRN (13:30)
[2018-07-30] MEDS ORDERED: Atropine Sulfate 0.4mg/ml inj IVP PRN (13:30)
--- NOTE | 2018-07-30 13:30 | Anethesia Preoperative Eval ---
Anesthesia Pre-op PMH/ROS General Date of Evaluation: Jul 30, 2018 Anesthesiologist: Vy ASA Score: ASA 3 Mallampati Score Class I : Soft palate, uvula, fauces, pillars visible Class II: Soft palate, uvula, fauces visible Class III: Soft palate, base of uvula visible Class IV: Only hard plate visible Mallampati Classification: Class II Surgeon: Nithya Diagnosis: Hemorrhoids Surgical Procedure: Hemorrhoidectomy Anesthesia History: none Family History: no anesthesia problems Allergies: Coded Allergies: No Known Allergies (Unverified , 07/28/13) Medications: see eMAR Patient NPO?: Yes Past Medical History Neurologic/Psychiatric: Reports: depression/anxiety, other - Seizure Disorder PSxH Narrative: Umbilical Hernia repair, ORIF L Arm Anesthesia Pre-op Phys. Exam Physician Exam Last Vital Signs Date Time Temp Pulse Resp B/P (MAP) Pulse Ox O2 Delivery O2 Flow Rate FiO2 07/30/18 12:35 Room Air 07/30/18 12:20 97.3 84 20 112/69 97 Constitutional: NAD Neurologic: CN 2-12 intact Cardiovascular: RRR Respiratory: CTA Gastrointestinal: S/NT/ND Airway Exam Mallampati Score: Class II MO: full ROM: limited Teeth: missing, intact Anesthesia Pre-op A/P Risk Assessment & Plan Assessment: ASA 3 Plan: GA, SED Status Change Before Surgery: No Pre-Antibiotics Dru Grams Ancef IV Given Within 1 Hr of Incision: Yes Ochoa Mcclellan MD Jul 30, 2018 13:30
--- NOTE | 2018-07-30 13:31 | Immediate Post-Op Evaluation ---
Immediate Post-Op Evalulation Immediate Post-Op Evalulation Procedure: Hemorrhoidectomy Date of Evaluation: Jul 30, 2018 Time of Evaluation: 15:58 IV Fluids: 800 LR Blood Products: 0 Estimated Blood Loss: 20 Urinary Output: 0 Blood Pressure Systolic: 103 Blood Pressure Diastolic: 71 Pulse Rate: 74 Respiratory Rate: 16 O2 Sat by Pulse Oximetry: 100 Temperature (Fahrenheit): 97.2 Pain Score (1-10): 2 Nausea: No Vomiting: No Complications 0 Patient Status: awake, reacts, patent, none Hydration Status: adequate Dru Grams Ancef IV Given Within 1 Hr of Incision: Yes Time Given: 15:01 Ochoa Mcclellan MD Jul 30, 2018 13:31
--- NOTE | 2018-07-30 13:32 | 48 Hour Post Anesthesia Eval ---
Post Anesthesia Evaluation Procedure: Hemorrhoidectomy Date of Evaluation: Jul 30, 2018 Time of Evaluation: 18:11 Blood Pressure Systolic: 106 0: 75 Pulse Rate: 67 Respiratory Rate: 18 Temperature (Fahrenheit): 98.2 O2 Sat by Pulse Oximetry: 100 Airway: patent Nausea: No Vomiting: No Pain Intensity: 2 Hydration Status: adequate Cardiopulmonary Status: Stable Mental Status/LOC: patient returned to baseline Follow-up Care/Observations: 0 Post-Anesthesia Complications: 0 Follow-up care needed: ready to discharge Ochoa Mcclellan MD Jul 30, 2018 13:32
[2018-07-30] MEDS ORDERED: Bupivacaine w/Epi 0.5% 30ml Vial INJ ONE (13:43)
[2018-07-30] MEDS ORDERED: Lidocaine HCl 2% Jelly 6ml Tube TOPIC ONE (13:43)
[2018-07-30] MEDS ORDERED: Gelfoam Size TOPIC ONE (13:43)
[2018-07-30] MEDS ORDERED: Lidocaine 1% Plain 30 ml INJ ONE (13:47)
[2018-07-30] MEDS ORDERED: Alfentanil 2ml Inj ONE (13:47)
[2018-07-30] MEDS ORDERED: Propofol 200mg/20ml IV ONE (13:48)
[2018-07-30] MEDS ORDERED: Sodium Chloride 10ml vial INJ ONE ×2 (13:48→13:51)
[2018-07-30] MEDS ORDERED: cefOXitin 1gm Inj ONE (14:06)
--- NOTE | 2018-07-30 14:55 | Pre-Procedure Note/Attestation ---
Pre-Procedure Note/Attestation Complete Prior to Procedure Planned Procedure: not applicable Procedure Narrative: examination under anesthesia hemorrhoidectomy Indications for Procedure Pre-Operative Diagnosis: hemorrhoids Attestation I attest that I discussed the nature of the procedure; its benefits; risks and complications; and alternatives (and the risks and benefits of such alternatives ), prior to the procedure, with the patient (or the patient's legal dental sales representative). I attest that, if there was a reasonable possibility of needing a blood transfusion, the patient (or the patient's legal dental sales representative) was given the [facility] standardized written summary, pursuant to the [place] Blood Safety Act ([place] Health and Safety Code # 1645, as amended). I attest that I re-evaluated the patient just prior to the surgery and that there has been no change in the patient's H&P, except as documented below: Kenan Barriga Jul 30, 2018 14:55
[2018-07-30] MEDS ORDERED: Sterile Water For Irrig 2000ml IRRIG ONE (15:00)
[2018-07-30] MEDS ORDERED: NS Irrig 1000ml IRRIG ONE ×2 (15:00→15:32)
[2018-07-30] MEDS ORDERED: LR 1000ml ONE (15:00)
--- NOTE | 2018-07-30 15:48 | Brief Operative Note ---
Immediate Post Operative Note Operative Note Pre-op Diagnosis: hemorrhoids Procedure: 1. examination under anesthesia 2. hemorrhoidectomy x 2 bundles (posterior midline and right lateral 3. rigid sigmoidoscopy Post-op Diagnosis: internal hemorrhoids Surgeon: kassie Anesthesiologist: harley Anesthesia: local, MAC Specimen: yes Complications: none Condition: stable Fluids: see records Estimated Blood Loss: minimal Drains: none Implant(s) used?: No Kenan Barriga Jul 30, 2018 15:48
[2018-07-30] MEDS ORDERED: Tylenol #3 tab (300mg/30mg) ORAL PRN (16:00)
[2018-07-30] MEDS ORDERED: HYDROmorphone 1mg/ml Carpuject SUBQ PRN (16:00)
[2018-07-30] MEDS ORDERED: D5 1/2NS 1,000 ML IV SCH (17:00)
--- NOTE | 2018-07-31 21:45 | Operative Note - Dictated ---
DATE OF OPERATION: 07/30/2018 PREOPERATIVE DIAGNOSIS: Large grade 4 hemorrhoids, symptomatic. POSTOPERATIVE DIAGNOSIS: Large grade 4 hemorrhoids, symptomatic. OPERATION PERFORMED: 1. Examination under anesthesia. 2. Hemorrhoidectomy x2 bundles, posterior midline and right lateral. 3. Rigid sigmoidoscopy. ATTENDING SURGEON: Kenan Barriga M.D. CONVERTER OPERATOR: None. ANESTHESIOLOGIST: Ochoa Mcclellan M.D. ANESTHESIA: Local plus MAC. IV FLUIDS: Please see anesthesia records. COMPLICATIONS: None. DRAINS: None. SPECIMENS: Hemorrhoids. COUNTS: Sponge and needle count correct x2. ANTIBIOTICS: Intravenous antibiotics were given one hour prior to cut time. WOUND CLASSIFICATION: Class III. INDICATIONS FOR PROCEDURE: This is a 48-year-old male, who was referred to myself for evaluation in the office as an outpatient prior for worsening symptomatic hemorrhoids. The patient states that approximately 20 years ago, he initially had hemorrhoids and had a hemorrhoidectomy. Following, he has developed hemorrhoids again despite a bowel regimen and lifestyle changes. On evaluation at that time, the patient was identified to have grade 4 hemorrhoids as well as significant scarring from his prior surgery and a lax anal sphincter muscles. Furthermore, the patient was identified to have an inguinal hernia. All these findings were discussed with the patient in detail and surgery was indicated and recommended. Decision was made to proceed with hemorrhoidectomy initially and once recovered, proceed with inguinal hernia repair. The patient has a significant neurological history and was seen by a neurologist, who cleared him for surgery as well as cleared by primary care physician for surgery as well. Consent was obtained after explaining all the risks, benefits, and alternatives to surgery. OPERATIVE NOTE: The patient was taken to the operating room and placed on the operating room table in the prone position with bilateral arms out. All bony prominences were well padded. SCDs were placed. Preoperative time-out taken in identifying the patient, procedure, operative staff, and surgical staff. MAC sedation was provided by the anesthesiologist. The perirectal area was prepped and draped in standard surgical fashion. A local regional block was performed by myself. Once the patient was comfortable, examination under anesthesia was conducted and a fairly large posterior midline 6 o'clock position hemorrhoidal bundle, was grade 4, was identified as well as a grade 3 right lateral 3 o'clock position hemorrhoidal bundle. The patient had significant scarring in the right anterior lateral, approximately 2 o'clock position from his prior hemorrhoidectomy and a very lax sphincter muscle which was identified again as noted prior in the office. There was mild areas identified on the left side, but otherwise, intervention was only planned given these findings for the right lateral and posterior midline. We began initially with the posterior midline large hemorrhoid bundle and a 2-0 Vicryl suture was placed at the base, was ligated using . The area of excision was mapped with electrocautery and following this, a Thunderbeat energy device was used to divide the hemorrhoidal bundle. The remaining mucosal and skin edges were reapproximated using the initially placed 2-0 Vicryl suture. A reinforcing 3-0 chromic gut running suture was placed as well following this. A small portion of the distal aspect in the anal canal exit was left for drainage. Good hemostasis noted. We then turned our attention to the right lateral 3 o'clock position bundle and excised this in a similar fashion without complication. Both bundles were sent to pathology for review. A rigid sigmoidoscopy was performed and no significant abnormalities were identified. Good hemostasis was noted. The wounds were irrigated and cleansed. A lidocaine jelly dressing was applied. The patient is taken to postanesthetic care unit in stable condition. Kenan Barriga M.D. DR: HAWA JOB#: [id number] CC:
== END 2018-07-30 17:50 | disposition home or self-care (01) ==
LOC: SUR 11:50
DX: K64.3 Fourth degree hemorrhoids (principal); F32.9 Major depressive disorder, single episode, unspecified; F41.9 Anxiety disorder, unspecified; G40.909 Epilepsy, unspecified, not intractable, without status epilepticus; Z79.899 Other long term (current) drug therapy
CPT/HCPCS: 45330; 46255; J0694; J2001; J2250; J2704; J3490; 94003; 94150

== ENCOUNTER 2019-01-22 21:44 | Emergency (ER) | payer MEDICARE, OTHER ==
[~2019-01-22] VITALS: Ht 188 cm; Wt 38.6 kg
[~2019-01-22 21:44] MED LIST changes: +VIMPAT100 MG PO
[2019-01-22 21:53] VITALS: BP 117/73
--- NOTE | 2019-01-22 21:53 | NUR ---
ED Nurse Note: PT walked into ED for C/O blurry vision to bilateral eyes. pt states it has been gettign worse. pt recently had eye exam at [facility] and doctor told him it was ok.
[2019-01-22 22:30] VITALS: BP 120/73
--- NOTE | 2019-01-22 22:30 | NUR ---
ER DISCHARGE NOTE: Patient is cleared to be discharged per ERMD, pt is aox4, on room air, with stable vital signs. pt was given dc instructions, pt was able to verbalize understanding, pt id band removed without complications. pt is able to ambulate with steady gait. pt took all belongings.
--- NOTE | 2019-01-22 22:47 | Emergency Room Report ---
History of Present Illness General Chief Complaint: Eye Problems Source: Medical Record Present Illness HPI Patient 48-year-old male presents for increased distance vision. He reports having this onset over several months. He denies any acute changes in his vision. He states that he had been on Depakote. He reports having prior eye exam and had previously been diagnosed with seizure disorder. Patient denies any acute change to his vision. Allergies: Coded Allergies: No Known Allergies (Unverified , 07/28/13) Patient History Past Medical History: see triage record Reviewed Nursing Documentation: PMH: Agreed; PSxH: Agreed Nursing Documentation-PMH Past Medical History: No History, Except For Hx Cardiac Problems: No Hx Cancer: No Hx Gastrointestinal Problems: No Hx Neurological Problems: Yes Hx Seizures: Yes - last was July 2017, May 02 2018 Hx Epilepsy: Yes - last episode 04/2018 Review of Systems All Other Systems: negative except mentioned in HPI Physical Exam Vital Signs Date Time Temp Pulse Resp B/P (MAP) Pulse Ox O2 Delivery O2 Flow Rate FiO2 01/22/19 21:48 97.9 95 18 117/73 (88) 98 Room Air General Appearance: well appearing, no apparent distress, alert, GCS 15, non- toxic Head: normocephalic, atraumatic ENT: hearing grossly normal, normal voice Neck: full range of motion, supple Respiratory: lungs clear, no respiratory distress, speaking full sentences Cardiovascular #1: normal inspection Gastrointestinal: normal inspection Musculoskeletal: no calf tenderness Neurologic: normal gait Psychiatric: mood/affect normal Skin: no rash Medical Decision Making Diagnostic Impression: Primary Impression: Myopia of both eyes ER Course Patient presents for increased difficulty with distance vision. Differential diagnosis include was not limited to myopia, medication reaction among others. Patient does not appear to have any acute change in his vision. He appears to be stable for outpatient evaluation by an machine assembler supervisor or learning and development consultant. There does not appear to be an acute emergency condition at this time. Patient is stable for discharge. Patient will be discharged home. Last Vital Signs Date Time Temp Pulse Resp B/P (MAP) Pulse Ox O2 Delivery O2 Flow Rate FiO2 01/22/19 21:53 97.9 84 18 117/73 98 Room Air Status: improved Disposition: HOME, SELF-CARE Condition: Stable Patient Instructions: Bradley Elliott MD Jan 22, 2019 22:46
== END 2019-01-22 22:30 | disposition home or self-care (01) ==
LOC: EMR 22:27
DX: H52.13 Myopia, bilateral (principal); G40.909 Epilepsy, unspecified, not intractable, without status epilepticus
CPT/HCPCS: 99282

== ENCOUNTER 2019-02-01 02:43 | Emergency (ER) | payer MEDICARE, OTHER ==
[~2019-02-01] VITALS: Ht 188 cm; Wt 38.1 kg
--- NOTE | 2019-02-01 03:12 | NUR ---
ED Nurse Note: per patient he had hernia repair on the right groin wants to be checked to make sure it is okay denies any pain. patient also states he needs to be checked for std check. BETO, YUE, MARIA A at bedside.
[2019-02-01 03:15] VITALS: BP 106/64
--- NOTE | 2019-02-01 03:18 | Emergency Room Report ---
History of Present Illness General Chief Complaint: General Complaint Source: Patient Present Illness HPI This is a 48-year-old male with no past medical history who presents with 2 issues. He had a right hernia repair done on January [address] Barriga he was told not to do heavy lifting but he said he moved so he did lift some heavy lifting. He also noticed that the scar is not flat and he was concerned to make sure everything looks fine. Denies any pain in that area. Denies any mass. No fever chills but no trauma. His second issue is he wants to be checked for STD. He said he slept with a girl 4 weeks ago. He found out that she has multiple partners. Patient has no discharge. He has no pain. No other complaint. Allergies: Coded Allergies: No Known Allergies (Unverified , 07/28/13) Patient History Past Medical History: see triage record, old chart reviewed Past Surgical History: other Pertinent Family History: none Social History: Denies: smoking Immunizations: other Reviewed Nursing Documentation: PMH: Agreed; PSxH: Agreed Nursing Documentation-PMH Hx Cardiac Problems: No Hx Cancer: No Hx Neurological Problems: Yes Hx Seizures: Yes - last was July 2017, May 02 2018 Hx Epilepsy: Yes - last episode 04/2018 Review of Systems Eye: Denies: eye pain, blurred vision ENT: Denies: ear pain, nose congestion, throat swelling Respiratory: Denies: cough, shortness of breath Cardiovascular: Denies: chest pain, palpitations Gastrointestinal: Denies: abdominal pain, diarrhea, nausea, vomiting Musculoskeletal: Denies: back pain, joint pain Skin: Denies: rash Neurological: Denies: headache, numbness Endocrine: Denies: increased thirst, increased urine Hematologic/Lymphatic: Denies: easy bruising All Other Systems: negative except mentioned in HPI Physical Exam Vital Signs Date Time Temp Pulse Resp B/P (MAP) Pulse Ox O2 Delivery O2 Flow Rate FiO2 02/01/19 03:01 98.2 84 16 106/64 (78) 98 Room Air Vitals normal Sp02 EP Interpretation: reviewed, normal General Appearance: well appearing, no apparent distress, alert Head: normocephalic, atraumatic Eyes: bilateral eye PERRL, bilateral eye EOMI ENT: hearing grossly normal, normal pharynx Neck: full range of motion, supple, no meningismus Respiratory: chest non-tender, lungs clear, normal breath sounds Cardiovascular #1: regular rate, rhythm, no murmur Gastrointestinal: normal bowel sounds, non tender, no mass, no organomegaly, no bruit, non-distended, other - Right inguinal area: There is some scar tissue but no evidence of any infection. Normal healing. Musculoskeletal: back normal, normal range of motion, gait/station normal Psychiatric: mood/affect normal Medical Decision Making Diagnostic Impression: Primary Impression: Encounter for postoperative wound check ER Course Patient for wound check. Is healing well. No evidence of any hernia. He had one section of course 4 weeks ago. I told patient that he can get outpatient STD testing anonymously. I see no need for emergent testing here. He has no symptoms whatsoever. Will discharge home. Last Vital Signs Date Time Temp Pulse Resp B/P (MAP) Pulse Ox O2 Delivery O2 Flow Rate FiO2 02/01/19 03:13 82 18 02/01/19 03:01 98.2 106/64 (78) 98 Room Air Status: improved Disposition: HOME, SELF-CARE Condition: Stable Referrals: Kenan Barriga (PCP) Additional Instructions: Follow-up with your doctor in 7 days. Return if symptoms worsen. Recommend outpatient testing for STDs. This can be done anonymously. Gordon Brewer MD Feb 01, 2019 03:18
[2019-02-01 03:23] VITALS: BP 112/76
== END 2019-02-01 03:42 | disposition home or self-care (01) ==
LOC: EMR 03:11
DX: Z48.89 Encounter for other specified surgical aftercare (principal); G40.909 Epilepsy, unspecified, not intractable, without status epilepticus
CPT/HCPCS: 99281